=== PATIENT | female | born 1980 | race Hispanic/Latino ===

== ENCOUNTER 2021-09-01 19:52 | Emergency (ER) | payer SELFPAY ==
[~2021-09-01] VITALS: Ht 157.5 cm; Wt 63.6 kg
[2021-09-01 20:21] LABS: HEMATOCRIT 33.5 % (37.0-47.0); HEMOGLOBIN 10.1 g/dl (12.0-16.0); IMMATURE GRANULOCYTES 0.3 % (0.0-5.0); MEAN CELL VOLUME 79.4 fL CALC (80.0-100.0); MEAN CORPUSCULAR HGB 23.9 pG CALC (26.0-32.0); MEAN CORPUSCULAR HGB CONC 30.1 g/dL CAL (32.0-36.0); NEUT# 4.37 thou/uL (2.00-7.15); RED BLOOD COUNT 4.22 mill/uL (4.20-5.60); RED CELL DISTRI WIDTH 16.2 % (11.5-15.5)
[2021-09-01] MEDS ORDERED: TESSALON PERLE100 MG PO (21:11)
[2021-09-01 21:25] VITALS: BP 128/72
== END 2021-09-01 21:36 | disposition home or self-care (01) | DRG 153 ==
LOC: ED 19:52
PROVIDERS: Family Medicine
DX: J06.9 Acute upper respiratory infection, unspecified (principal); Z20.822 Contact with and (suspected) exposure to COVID-19

== ENCOUNTER 2024-11-02 07:53 | Day surgery (SDC) | payer SELFPAY ==
[~2024-11-02 07:53] MED LIST: FERROUS SULF325 M3 PO; TESSALON PERLE100 MG PO
[2024-11-02] MEDS ORDERED: LACTATED RINGER'S 1,000 ML IV ONE (07:59)
[2024-11-02] MEDS ORDERED: FAMOTIDINE 10MG/ML 2ML SDV IV ONE (07:59)
[2024-11-02 10:42] VITALS: BP 128/84
[2024-11-02] MEDS ORDERED: PROPOFOL 200 MG/20 ML VIAL IV ONE (12:04)
[2024-11-02] MEDS ORDERED: GLYCOPYRROLATE 0.2 MG/ML IV ONE (12:04)
[2024-11-02] MEDS ORDERED: LIDOCAINE HCL 2% 2ML SDV IV ONE (12:04)
== END 2024-11-02 10:45 | disposition home or self-care (01) | DRG 812 ==
LOC: ENDO 07:53 → ORM 08:00 → ENDO 08:35 → ORM 08:35 → ENDO 09:15
PROVIDERS: ATTEND Surgery
PROC: 0DB98ZX Excision of Duodenum, Via Natural or Artificial Opening Endoscopic, Diagnostic (ICD-10-PCS; principal; 2024-11-02)
PROC: 0DB78ZX Excision of Stomach, Pylorus, Via Natural or Artificial Opening Endoscopic, Diagnostic (ICD-10-PCS; 2024-11-02)
PROC: 0DJD8ZZ Inspection of Lower Intestinal Tract, Via Natural or Artificial Opening Endoscopic (ICD-10-PCS; 2024-11-02)
DX: D50.9 Iron deficiency anemia, unspecified (principal); K29.50 Unspecified chronic gastritis without bleeding; K31.9 Disease of stomach and duodenum, unspecified; K57.30 Diverticulosis of large intestine without perforation or abscess without bleeding; K64.8 Other hemorrhoids
CPT/HCPCS: J1596